=== PATIENT | male | born 1985 ===

== ENCOUNTER → 2021-06-03 | Outpatient (REF) | payer OTHER ==
[2021-06-03 11:02] LABS: SEMEN APPEARANCE OPAQUE (OPAQUE); SEMEN VISCOSITY LIQUID (LIQUID); SEMEN VOLUME 4.3 ml (2.0-5.0); SPERM CONCENTRATION 56.8 M/ml (>=15.0); WBC CONCENTRATION <=1 M/ml (<=1 M/ml)
== END ==
LOC: M LAB REF 09:15
PROVIDERS: ATTEND Urology
DX: N46.023 Azoospermia due to obstruction of efferent ducts (principal)